=== PATIENT | female | born 1985 | race Caucasian/White ===

== ENCOUNTER 2024-08-27 08:27 | Emergency (ER) | payer MEDICAID, SELFPAY ==
[2024-08-27 08:30] VITALS: BP 136/82; PULSE 81; RESP 18; TEMP 36.9; O2SAT 99
--- NOTE | 2024-08-27 08:44 | ED.GENADUL_ITS ---
Discharge Plan Disposition Patient Disposition: Home Condition: Stable Discharge Details Clinical Impression: Left lumbar radiculopathy Primary Care Provider: None,None ED Provider: Agus Smith Home Meds and New Rx's Prescriptions: New ketorolac 10 mg tablet 10 mg PO QID PRN5 Days Qty: 20 0RF Rx Instructions: maximum total duration of 5 days from all oral, intranasal, or parenteral formulations cyclobenzaprine 10 mg tablet 10 mg PO TID PRNQty: 30 0RF Discharge Instructions Instructions: Ketorolac (Systemic), Cyclobenzaprine, Sciatica ED Additional Instructions: You were seen in the emergency department for your left-sided sciatica. You need to use a combination of medications including Tylenol, prescription strength anti-inflammatory, muscle relaxer, [id number] lidocaine patches, apply gentle heat and gentle massage to the area. You can also pursue physical therapy visits to help get your sacrum and alignment. Please use therapeutic dosing of Tylenol (acetamenophen) & Advil (ibuprofen) in an alternating fashion as follows: Take 1000mg of Tylenol every 6 hours without missing doses- that is 4 times per day. Penitentiary in between the Tylenol dosings, take the Rx 10mg ketorlac every 6 hours for 5 days, then substitute 400mg ibuprofen when you run out of this medication. The daily maximum dosing of Tylenol is 4000mg, and the daily maximum dosing of Advil is 2400mg. This is safe to do for weeks. Please note that some common cold medications & prescription pain medications may contain acetamenophen and you need to read OTC drug labels and factor that in to maximum daily dosings. Stand Alone Forms: Physical Therapy Referral Discharge Data Discharge Date/Time-TO BE ENTERED AT DEPARTURE: 08/27/24 09:40 HPI General Date/Time Provider Initiated Documentation: 08/27/24 08:32 . HPI Narrative: 39 year-old female presents to ED today by POV/ambulating with a chief complaint of L flank pain, radiating down the L leg since last night. Quality described as L lumbosacral paraspinal pain, shooting down the L thigh, no radiation to complete numbness, endorses tingling, denies urinary/bowel changes, denies inability to ambulate, denies IVDU history. Severity is described as severe. Palliating factors include nothing specific attempted. Provoking factors include nothing specific- no trauma. Events leading up to the incident/Associated Symptoms: Patient has had sciatica before, but never this bad. Patient not anticoagulated. Related Data Home Medications ?Medication ?Instructions ?Recorded ?Confirmed cyclobenzaprine 10 mg tablet 10 mg PO TID PRN #30 tabs 08/27/24 ketorolac 10 mg tablet 10 mg PO QID PRN 5 days #20 tabs 08/27/24 Previous Rx's ?Medication ?Instructions ?Recorded cyclobenzaprine 10 mg tablet 10 mg PO TID PRN #30 tabs 08/27/24 ketorolac 10 mg tablet 10 mg PO QID PRN 5 days #20 tabs 08/27/24 Allergies Allergy/AdvReac Type Severity Reaction Status Date / Time No Known Allergies Allergy Unverified 08/27/24 08:32 General Stated Complaint: Nk/Back Pain ALDO: 3 Review of Systems All systems reviewed & are unremarkable except as noted in HPI and below Exam Narrative Exam Narrative: GENERAL APPEARANCE: Well-nourished, non-toxic, awake and alert, atraumatic, no acute distress. SKIN: Warm, pink, dry, intact, without rashes/lesions/ulcerations. HEAD: Normocephalic, atraumatic, normal hair distribution for gender/age. EYES: Normal conjunctiva, no exudates on lids/lashes. ENT: Nares patent, no circumoral cyanosis, no facial swelling NECK: Supple, trachea midline, painless cervical ROM. LUNGS/CHEST: Non-labored respirations, normal A/P diameter, symmetrical expansion, no chest wall deformity HEART (CV/PV): No peripheral edema, no JVD. ABDOMEN: Soft, non-distended, no guarding. MSK: Normal ROM, no swelling/deformity to bilateral UEs or LEs, moving all extremities without weakness, no cyanosis, spine midline without tenderness, normal curvature, left lumbosacral paraspinal tenderness and palpable muscle tension, no midline vertebral tenderness/crepitus/step-offs, neurovascularly intact in left lower extremity, able to ambulate, strength only slightly limited to pain in lower back NEURO: Mental Status AAOx4 - alert to person, place, time, events No facial droop, no forehead involvement. Motor: No focal weakness - strength 5/5 in bilateral UEs and LEs, proximal and distal, symmetric. Sensory: sensation intact to light touch globally. Gait NT. PSYCH: euthymic, cooperative, pleasant, appropriate speech Course Vital Signs Vital signs: Vital Signs Temperature 36.9 C 08/27/24 08:30 Pulse 81 08/27/24 08:30 Respiratory Rate 18 08/27/24 08:30 Blood Pressure 136/82 08/27/24 08:30 Pulse Oximetry 99 08/27/24 08:30 Temperature 36.9 C 08/27/24 08:30 Temperature Source Temporal Artery Scan 08/27/24 08:30 Pulse 81 08/27/24 08:30 Respiratory Rate 18 08/27/24 08:30 Respiratory Effort Normal, Non-Labored 08/27/24 08:33 Blood Pressure 136/82 08/27/24 08:30 Blood Pressure Position Sitting 08/27/24 08:30 Pulse Oximetry 99 08/27/24 08:30 Oxygen Delivery Method Room Air 08/27/24 08:30 Oxygen Flow Rate 0 08/27/24 08:30 Medical Decision Making This dictation utilizes [id number] dictation software and may contain unedited grammatical errors. 39 year-old female presents to ED today by POV/ambulating with a chief complaint of L flank pain, radiating down the L leg since last night. Quality described as L lumbosacral paraspinal pain, shooting down the L thigh, no radiation to com plete numbness, endorses tingling, denies urinary/bowel changes, denies inability to ambulate, denies IVDU history. Severity is described as severe. Palliating factors include nothing specific attempted. Provoking factors include nothing specific- no trauma. Events leading up to the incident/Associated Symptoms: Patient has had sciatica before, but never this bad. Patients' medical history: Sciatica. Family and social history: Noncontributory. Pertinent exam findings / vital signs include left lumbosacral paraspinal tenderness and palpable muscle tension, no midline vertebral tenderness/crep itus/step-offs, neurovascularly intact in left lower extremity, able to ambulate, strength only slightly limited to pain in lower back. Differential / pathologies of concern include sciatica, not cauda equina, not trauma/fracture. Diagnostic studies of: -none. Interventions of: -Tylenol, Toradol, Cyclobenzaprine, LidoDerm. ED Course/Assessment/Plan: 39-year-old female presents with left-sided sciatica syndrome, no trauma, do not suspect any vertebral injury, patient has no risk factors for spinal epidural abscess and has no symptoms of cauda equina, counseled her on adequate pain relief and recommend physical therapy referral, strict return criteria for bowel urinary changes, severe increased back pain fever, paralysis of left lower extremity. Findings not consistent with cauda equina or spinal epidural abscess. Disposition of Left Lumbar Radiculopathy. Patient verbalized understanding of the plan and return to ED criteria and engaged in shared decision making. Medical Records Medical records reviewed: Yes I reviewed the patient's medical records. Quality:SDOH Health Related Social Needs: No Data to Display PFSH All Active Problems (Updated 08/27/24 @ 08:48 by YISEL Field) Left lumbar radiculopathy (Acute) Social History (System 08/23/24 @ 12:58 by Ainsley Mandujano) Smoking/Tobacco Use Status: Never Smoking risk assessment performed?: Yes Alcohol Intake: never Drug use: Never Substance use type: does not use Do you feel safe at home: Yes Do you feel safe in your relationship?: Yes
[2024-08-27] MEDS: Lidocaine 5% Patch 1 PATCH TP (09:26)
[2024-08-27] MEDS: Ketorolac 10 MG TAB PO (09:27)
[2024-08-27] MEDS: Acetaminophen 500 MG TAB 1000 MG PO (09:27)
[2024-08-27] MEDS: Dexamethasone 4 MG TAB PO (09:27)
[2024-08-27 09:32] VITALS: BP 149/81; PULSE 80; RESP 20; TEMP 36.8; O2SAT 97
== END 2024-08-27 09:40 | disposition home or self-care (01) ==
LOC: ER 09:24
PROVIDERS: Emergency Provider Physician Assistant
DX: M54.16 Radiculopathy, lumbar region (principal); M54.32 Sciatica, left side
CPT/HCPCS: 99283; 99284; J8540